=== PATIENT | female | born 1995 | race Caucasian/White ===

== ENCOUNTER → 2018-09-18 | Outpatient (CLI) | payer OTHER ==
--- NOTE | 2018-09-20 09:43 | SLEEPCENT ---
DATE OF PROCEDURE: 09/18/2018 ORDERED BY: JAY Ford Nocturnal polysomnography was performed for evaluation of sleep physiology in this patient with a history of excessive somnolence, snoring, irregular breathing in sleep and nonrestorative sleep. 8 hours and 9 minutes of data were reviewed. There were 431 minutes of sleep identified. Sleep latency was short at 6 minutes. Rapid eye movement (REM) latency was normal at 81 minutes. Sleep architecture was good with 5 REM cycles noted. Overall sleep efficiency 89%. The patient's electrocardiogram showed a sinus rhythm with an average heart rate of 48 beats per minute. Rate ranged 40-62 beats per minute. EEG showed normal waveforms for awake and sleep. There were no respiratory events of 10 seconds in duration or greater. Snoring was noted. Arousals from snoring events occurred 1.8 times per hour. There was some activity noted in the limb leads. Limb movement arousal index was only 4.2. Saturations remained 90% plus throughout the study. IMPRESSION: Normal nocturnal polysomnography with snoring.
== END ==
LOC: M SLEEP 19:12
PROVIDERS: ATTEND Nurse Practitioner Family
DX: R40.0 Somnolence (principal)